=== PATIENT | male | born 1970 | race Caucasian/White ===

== ENCOUNTER 2018-07-23 23:46 | Emergency (ER) | payer SELFPAY ==
[~2018-07-23] VITALS: Ht 175.3 cm; Wt 100.0 kg
[2018-07-24] MEDS ORDERED: DIPH,PERTUSS(ACELL),TET VAC/PF 0.5 ML IM-VACC ONE ×2 (00:21→00:30)
[2018-07-24] MEDS ORDERED: LIDOCAINE 1%-EPI 1:100K, 30ML INFIL ONE (00:30)
[2018-07-24] MEDS ORDERED: BUPIVACAINE 0.25% ONE (00:59)
[2018-07-24] MEDS ORDERED: BACITRACIN ZINC OINT 500U/GM, 0.9 GM ONE (02:00)
[2018-07-24 02:26] VITALS: BP 123/74
== END 2018-07-24 02:28 | disposition home or self-care (01) ==
LOC: ED 07-24 00:15
DX: S81.812A Laceration without foreign body, left lower leg, initial encounter (principal); W22.8XXA Striking against or struck by other objects, initial encounter; Y93.89 Activity, other specified; Y92.008 Other place in unspecified non-institutional (private) residence as the place of occurrence of the external cause; Y99.8 Other external cause status
CPT/HCPCS: 12034; 73590; 90471; 90715; 99284; J3490

== ENCOUNTER 2018-08-02 13:27 | Emergency (ER) | payer SELFPAY ==
[~2018-08-02] VITALS: Ht 175.3 cm; Wt 92.4 kg
[2018-08-02 13:32] VITALS: BP 138/87
[2018-08-02] MEDS ORDERED: BACITRACIN ZINC OINT 500U/GM, 0.9 GM ONE (14:12)
== END 2018-08-02 14:29 ==
LOC: ED 13:38
DX: S81.812D Laceration without foreign body, left lower leg, subsequent encounter (principal); X58.XXXD Exposure to other specified factors, subsequent encounter
CPT/HCPCS: 99283